=== PATIENT | female | born 1945 | race Caucasian/White ===

== ENCOUNTER → 2018-07-30 | Outpatient (CLI) | payer OTHER ==
[~2018-07-30] MED LIST: ALENDRONATE PO; AZASAN75 MG PO; CALCIUM 600 +1 EAC1 PO; CLARITIN10 MG PO; ENALAPRIL MALEAT5 M1 PO; EPIPEN0.3 MG/0.3 IM; METRONIDAZOLE TOP; NASONEX NS; NIZORAL120 ML TP; PREDNISONE 10 M10 MG PO; PREMPRO 0.3 MG1 EACH PO; PRILOSEC 20 MG20 MG PO; SINGULAIR PO; VITAMIN D400 UNI1 PO
== END ==
LOC: CAT 11:39
DX: Z13.6 Encounter for screening for cardiovascular disorders (principal); E78.00 Pure hypercholesterolemia, unspecified; I25.10 Atherosclerotic heart disease of native coronary artery without angina pectoris